=== PATIENT | female | born 1975 | race Caucasian/White ===

== ENCOUNTER → 2016-05-18 | Day surgery (SDC) | payer BC ==
[2016-05-18] VITALS (11 sets, daily range): BP systolic 114–125; BP diastolic 62–76; PULSE 73–99; TEMP 36.6–36.9; O2SAT 98–99; Ht 182.9 cm; Wt 110.0 kg
[~2016-05-18] VITALS: Ht 182.9 cm; Wt 110.0 kg
[~2016-05-18] MED LIST: ACETAMINOPHEN 500 MG TAB PO PRN; CETI10TA84 PO; CYAN100T PO; ERGO500037 PO; FAMO20TA11 PO; LORA-741 PO; SERT50TA PO; VERA1TAB PO
--- NOTE | 2016-05-18 09:41 | Discharge Instructions ---
Discharge Instructions Procedure Procedure Date: May 18, 2016. Reason for visit: Abn Mri, Headache, Left Arm ? W/Opening Pressure. Discharge Discharge Date: May 18, 2016. Discharge Diagnosis: Headache Instructions Activity Recommendations: 1 Day-May resume regular activity, 48 Hours of decreased exertion, 1 Day with no exercise/sex/sports, 1 Day with no driving/ machine use Return to School/Work: limitations (light activity x 48 hours) Recommended Home Diet: Resume Previous Diet Provider Instructions: Fluoroscopic guided lumbar puncture is performed at the L4-L5 interlaminar space. Approximately 10 cc of clear, colorless CSF was removed and sent for laboratory analysis. There were no immediate complications. Allergies Coded Allergies: No Known Allergies (Unverified , 05/18/16) Wen Jenkins Recommendations: Call your doctor if: * Temperature above 101 degrees * Pain not relieved by pain medicine ordered * There is increased drainage or redness from any incision * You have any unanswered questions or concerns. Your Doctors Instructions noted above were prepared by provider Vadim Capone. Patient Signature Section: Patient Instructions Signature Page Consuelo Ceballos Patient (or Guardian) Signature/Date: I have read and understand the instructions given to me by my caregivers. Caregiver/RN/Doctor Signature/Date: The above-named patient and/or guardian has received patient instructions on this date. + Original Patient Signature Page (only) stays with chart. Please make copy for patient.
--- NOTE | 2016-05-18 09:46 | DIAGNOSTIC IMAGING REPORT ---
FLUOROSCOPIC GUIDED LUMBAR PUNCTURE CLINICAL HISTORY: Headache. PROCEDURE: The risks, benefits, and alternatives to the procedure is discussed with the patient who voiced understanding. Written informed consent was obtained. The patient was placed prone on the fluoroscopy table. The lower back was prepped and draped in the usual sterile fashion. 1% lidocaine was used for local anesthesia. A 20-gauge spinal needle was inserted into the left L4-L5 interlaminar space, and approximately 10 cc of clear colorless cerebrospinal fluid was removed. The patient tolerated the procedure well. There were no immediate complications. The patient was then transported to the medical treatment unit for further observation. Fluoroscopy time: 0.2 minutes. Opening pressure: 16 cm of water. IMPRESSION: Fluoroscopic guided lumbar puncture with removal of approximately 10 cc of cerebrospinal fluid. There were no immediate complications. Electronically signed by: Vadim Capone M.D. 05/18/2016 9:44 AM Dictated Date/Time: 05/18/2016 9:42 AM
[2016-05-18 10:04] LABS: CSF APPEARANCE CLEAR; CSF COLOR COLORLESS; CSF XANTHOCHROMIC NO XANTHOCHROMIA
[2016-05-18 10:16] LABS: CSF TOTAL PROTEIN 31.8 mg/dl (15.0-45.0)
[2016-05-24 05:31] LABS: ALBUMIN 2.9 g/dL (3.7-5.1); IGG CSF 1.7 mg/dL (0.8-7.7); IGG SERUM 778 mg/dL (694-1618); LYME DNA PCR CSF OR SYNOVIAL Not detected (Not Detected); LYME DNA SOURCE CSF; LYME IGG CSF NO BANDS DETECTED; LYME IGM CSF NO BANDS DETECTED; MYELIN BASIC PROTEIN 663 <2.0 mcg/L (0.0-4.0)
== END | disposition home or self-care (01) ==
LOC: C.ACU 07:58
PROVIDERS: ATTEND Psychiatry & Neurology Neurology
DX: R51 Headache (principal)

== ENCOUNTER → 2016-06-13 | Outpatient (CLI) | payer BC ==
[~2016-06-13] MED LIST changes: -ACETAMINOPHEN 500 MG TAB PO PRN
--- NOTE | 2016-06-13 09:58 | EEG Procedure Note ---
EEG Procedure Note Date of Service Jun 13, 2016. Start / End Times Start Time: 8:29 AM End Time: 8:49 AM Referring Physician Rupali Guevara History This is a 40-year-old female with intermittent episodes of paresthesias. EEG for further evaluation of possible seizure etiology. Pertinent home medications include Depakote Home Medication List Scheduled Cetirizine (Zyrtec), 10 MG PO DAILY Cyanocobalamin (Vitamin B-12), 100 MCG PO DAILY Ergocalciferol (Vitamin D 58137 Unit), 1 CAP PO WK Famotidine (Pepcid), 20 MG PO BID Sertraline (Zoloft), 1 TAB PO DAILY Miscellaneous Medications Lorazepam (Ativan), 0.5 MG PO Verapamil (Calan), 90 MG PO Description This is a 21 electrode EEG with a single channel dedicated to limited EKG. The electrodes were placed in accordance with the International 10-20 system. At the start of the recording the patient was in an awake state. Background was well organized and composed of symmetric mixed alpha and beta frequencies. There was a symmetric well-formed moderate amplitude 9-10 Hz posterior dominant rhythm that was reactive to eye opening and closure. Hyperventilation with good effort produced no abnormalities. Intermittent photic stimulation at various frequencies produced no abnormalities. Resonance was indicated by loss of muscle artifact and slowing of background rhythm with vertex waves. There was no stage 2 sleep transients. Interpretation This is a normal awake and drowsy routine EEG. There was no electrographic seizures or epileptiform discharges. Clinical Correlation A normal EEG does not rule out epilepsy if there is a strong clinical suspicion.
== END | disposition home or self-care (01) ==
LOC: C.NEUR 08:05
PROVIDERS: ATTEND Psychiatry & Neurology Neurology
DX: R20.2 Paresthesia of skin (principal)

== ENCOUNTER → 2016-11-29 | Outpatient (CLI) | payer BC | END | disposition home or self-care (01) | LOC: C.PAPS 10:15 | PROVIDERS: ATTEND Physician Assistant | DX: Z01.419 Encounter for gynecological examination (general) (routine) without abnormal findings (principal) ==

== ENCOUNTER → 2017-03-12 | Outpatient (CLI) | payer BC ==
--- NOTE | 2017-03-13 13:45 | MAMMOGRAPHY REPORT ---
BILATERAL FIRST EVER DIGITAL SCREENING MAMMOGRAM TOMOSYNTHESIS WITH CAD: 03/12/2017 CLINICAL HISTORY: Routine screening. Baseline exam. TECHNIQUE: Breast tomosynthesis in addition to standard 2D mammography was performed. Current study was also evaluated with a Computer Aided Detection (CAD) system. COMPARISON: No prior exams were available for comparison. BREAST COMPOSITION: There are scattered areas of fibroglandular density in both breasts. FINDINGS: There are a few benign-appearing microcalcifications in the right breast. No suspicious m ass, architectural distortion or cluster of suspicious microcalcifications is seen. IMPRESSION: ACR BI-RADS CATEGORY 1: NEGATIVE There is no mammographic evidence of malignancy. A 1 year screening mammogram is recommended. The pa tient will receive written notification of the results. Approximately 10% of breast cancers are not detected with mammography. A negative mammographic report should not delay biopsy if a clinically suggestive mass is present. Annette Rosales M.D. ay/:03/12/2017 17:40:32 Utility Appraiser: Zeina ARRINGTON(Pia)(Maria L)(KELLY), [facility] letter sent: Normal 1/2 BI-RADS Code: ACR BI-RADS Category 1: Negative
== END | disposition home or self-care (01) ==
LOC: C.MAMM 12:48
PROVIDERS: ATTEND Physician Assistant
DX: Z12.31 Encounter for screening mammogram for malignant neoplasm of breast (principal)

== ENCOUNTER 2018-10-10 09:05 | Observation (INO) ==
--- NOTE | 2018-10-01 15:53 | PAT Medication Instructions ---
Medication Instructions Date of Service October 01, 2018 Home Medications aspirin [Aspir-81] 81 mg PO HS cholecalciferol (vitamin D3) [Vitamin D3] 10,000 unit PO HS famotidine-Ca carb-mag hydrox [Pepcid Complete] 1 tab PO HS sertraline 50 mg PO HS simvastatin 10 mg PO HS ASK your surgeon for instructions aspirin [Aspir-81] 81 mg PO HS Take evening before surgery cholecalciferol (vitamin D3) [Vitamin D3] 10,000 unit PO HS famotidine-Ca carb-mag hydrox [Pepcid Complete] 1 tab PO HS sertraline 50 mg PO HS simvastatin 10 mg PO HS *THEN NOTHING TO EAT OR DRINK AFTER MIDNIGHT* Other Notes If you have any questions please call us at [phone] or [phone] or [phone] or [phone]
--- NOTE | 2018-10-02 12:44 | Anesthesiology Consultation ---
Date of Service October 02, 2018 Assessment & Plan (1) Encounter for pre-operative examination: CHECK TEST AM DOS Chart Review Chart Review: Acceptable Risk for Surgery and Patient seen in Pre Admission Testing Teaching & Discussion Instructed NPO after midnight before surgery, except medications with 15 cc of water. Medication instructions provided according to the PAT guidelines. History Surgery Operation Date: 10/10/18 10:50 Proposed Procedures p Robotic Total Laparoscopic Hysterectomy - Girish Norris MD Height/Weight Height: 6 ft Weight: 116.3 kg Allergies Allergy/AdvReac Type Severity Reaction Status Date / Time No Known Allergies Allergy Verified 10/01/18 14:42 Medications Home Medications Medication Instructions Recorded Confirmed Last Taken aspirin [Aspir-81] 81 mg PO HS 10/01/18 10/01/18 Unknown cholecalciferol (vitamin D3) 10,000 unit PO HS 10/01/18 10/01/18 Unknown [Vitamin D3] famotidine-Ca carb-mag hydrox 1 tab PO HS 10/01/18 10/01/18 Unknown [Pepcid Complete] sertraline 50 mg PO HS 10/01/18 10/01/18 Unknown simvastatin 10 mg PO HS 10/01/18 10/01/18 Unknown Past Medical History Medical History Anxiety Dysfunctional uterine bleeding Hyperlipidemia Migraine Obesity Exercise / Class Metabolic Activity II 4-5 Yardwork/Stairs/Walk up hill Past Surgical History Surgical History History of bilateral tubal ligation Past Anesthesia History No Hx of Anesthesia Complications and No Family Hx of Anesthesia Complications (patient is adopted, parental hx unknown but daughter had no issues with GA) History of PONV No Hx of PONV and Hx of Motion Sickness Social History Smoking Status: Never smoker Do You Dip or Chew Tobacco: No Hx Alcohol Use: No Hx Substance Use: No substance use type: does not use Review of Systems Pt denies any recent chest pain, shortness of breath, palpitations, cough, fever or URI. Physical Exam Vital Signs BP: 130/78 P: 81bpm SPO2: 98% RA T: 98.8 F R: 14 ENMT Mouth: no dental restorations, no chipped teeth and no loose teeth Thyromental Distance: > or= 3.5 Finger Breadths (4) Mallampati Class: I Missing 3 lower L molars Neck normal visual inspection; neck extension not limited Respiratory normal respiratory effort Auscultation: lungs clear to auscultation bilaterally Cardiovascular Rate/Rhythm: regular rate and regular rhythm Heart Sounds: no murmur Extremities: no edema Testing Laboratory Results 10/02/18 12:20 Blood Type A Negative 10/02/18 12:20 Antibody Screen NEGATIVE 10/02/18 12:20 *Per record review, Hgb has been in the 9's since 08/2018; patient has had significant uterine bleeding.
[2018-10-02 12:49] LABS: Basophils # (auto) 0.02 K/uL (0-0.2); Basophils % (auto) 0.3 %; Eosinophils # (auto) 0.02 K/uL (0-0.5); Eosinophils % (auto) 0.3 %; Hematocrit (blood only) 31.7 % (37-47); Hemoglobin 9.8 g/dL (12.0-16.0); Immature Granulocytes # (auto) 0.01 K/uL (0.00-0.02); Immature Granulocytes % (auto) 0.1 %; Lymphocytes # (auto) 1.49 K/uL (1.2-3.4); Lymphocytes % (auto) 21.3 %; Mean Corpuscular Hgb Conc 30.9 g/dL (32-36); Mean Corpuscular Volume 69.8 fL (80-100); Mean Platelet Volume 9.5 fL (7.4-10.4); Monocytes % (auto) 5.7 %; Neutrophils # (auto) 5.05 K/uL (1.4-6.5); Neutrophils % (auto) 72.3 %; Platelet Count 341 K/uL (130-400); RDW Coefficient of Variation 16.1 % (11.5-14.5); RDW Standard Deviation 40.9 fL (36.4-46.3); Red Blood Count 4.54 M/uL (4.2-5.4); White Blood Count 6.99 K/uL (4.8-10.8)
[2018-10-02 13:22] LABS: Microcytosis Present
[~2018-10-10 09:05] MED LIST changes: +CEFAZOLIN 3000MG 65 ML IV SCH; -CETI10TA84 PO; -CYAN100T PO; -ERGO500037 PO; -FAMO20TA11 PO; +LIDOCAINE HCL 2% 2 ML VIAL/AMP(20MG/ML) INFIL ONE; -LORA-741 PO; +LR 15ML/HR IV SCH; +MIDAZOLAM HCL 1 MG/ML 2ML VIAL ONE; +ONDANSETRON INJ 2 MG/ML 2 ML VIAL ONE; +PHENAZOPYRIDINE HCL 100 MG TAB PO SCH; +PROPOFOL IV EMULSION 10 MG/ML 20 ML VIAL IV ONE; +ROCURONIUM BROMIDE 10 MG/ML 5 ML VIAL ONE; -SERT50TA PO; -VERA1TAB PO; +fentaNYL citrate 100 MCG/2 ML VIAL ONE
[2018-10-10] MEDS ORDERED: ATROPINE SULFATE 0.1 MG/ML 10ML SYR IV PRN (09:46)
[2018-10-10] MEDS ORDERED: ePHEDrine sulfate 50 MG/ML AMP IV PRN (09:46)
[2018-10-10] MEDS ORDERED: SCOPOLAMINE 1.5 MG TDSY TD ONE (09:47)
[2018-10-10] MEDS ORDERED: SCOPOLAMINE 1.5 MG TDSY ONE (09:50)
--- NOTE | 2018-10-10 09:53 | History & Physical Bridge Note ---
Date of Service October 10, 2018 History & Physical Bridge Note I have examined the patient, reviewed the History & Physical and in the interval since the performance of the History & Physical I have noted the following changes of clinical significance: no changes noted
[2018-10-10 09:55] LABS: Basophils # (auto) 0.02 K/uL (0-0.2); Basophils % (auto) 0.4 %; Eosinophils # (auto) 0.05 K/uL (0-0.5); Hematocrit (blood only) 29.5 % (37-47); Lymphocytes # (auto) 1.23 K/uL (1.2-3.4); Lymphocytes % (auto) 24.5 %; Mean Corpuscular Volume 70.1 fL (80-100); Mean Platelet Volume 8.9 fL (7.4-10.4); Neutrophils # (auto) 3.33 K/uL (1.4-6.5); Neutrophils % (auto) 66.1 %; Platelet Count 321 K/uL (130-400); RDW Coefficient of Variation 16.1 % (11.5-14.5); RDW Standard Deviation 41.1 fL (36.4-46.3); Red Blood Count 4.21 M/uL (4.2-5.4); White Blood Count 5.03 K/uL (4.8-10.8)
[2018-10-10 09:57] LABS: Mean Corpuscular Hgb Conc 30.5 g/dL (32-36)
[2018-10-10] MEDS ORDERED: BUPIVACAINE 0.5 % 5 MG/1 ML MPF 30ML VIAL ONE (10:08)
[2018-10-10 10:16] LABS: RBC Morphology Unremarkable
[2018-10-10] MEDS ORDERED: NEOSTIGMINE METHYLSULFATE 5 MG/5 ML SYR ONE (10:55)
[2018-10-10] MEDS ORDERED: ONDANSETRON INJ 2 MG/ML 2 ML VIAL ONE (10:55)
[2018-10-10] MEDS ORDERED: GLYCOPYRROLATE 0.2 MG/ML VIAL ONE (10:55)
[2018-10-10] MEDS ORDERED: DEXAMETHASONE SOD INJ 4 MG/ML VIAL ONE (10:55)
[2018-10-10] MEDS ORDERED: KETOROLAC 30 MG/ML VIAL ONE (10:55)
[2018-10-10] MEDS ORDERED: TISSEEL FIBRIN SEALANT 4ML TOP ONE (11:10)
[2018-10-10] MEDS ORDERED: PHENYLEPHRINE HCL 10 MG/ML VIAL ONE (11:38)
[2018-10-10] MEDS ORDERED: fentaNYL citrate 100 MCG/2 ML VIAL ONE (12:19)
[2018-10-10] MEDS ORDERED: ACETAMINOPHEN 325 MG TAB PO PRN (12:29)
[2018-10-10] MEDS ORDERED: OXYCODONE/ACETAMINOPHEN 5mg/325mg TAB PO PRN ×2 (12:29)
[2018-10-10] MEDS ORDERED: IBUPROFEN 600 MG TAB PO PRN (12:29)
[2018-10-10] MEDS ORDERED: SIMETHICONE 80 MG CHEW PO PRN (12:29)
[2018-10-10] MEDS ORDERED: ONDANSETRON INJ 2 MG/ML 2 ML VIAL IV PRN (12:29)
[2018-10-10] MEDS ORDERED: KETOROLAC 30 MG/ML VIAL IV PRN (12:29)
[2018-10-10] MEDS ORDERED: PROMETHAZINE HCL 12.5 MG in SODIUM CHLORIDE 0.9% 50 ML IV PRN (12:29)
--- NOTE | 2018-10-10 12:29 | Post Operative Brief Note ---
Immediate Post Op Note v1 Date of Surgery October 10, 2018 Pre & Post Diagnosis Operation Date: 10/10/18 10:20 Pre-Op Diagnosis: Dysfunctional Uterin Bleeding, Chronic Pelvic Pain Post-Op Diagnosis: Dysfunctional Uterin Bleeding, Chronic Pelvic Pain Procedure Operation Date: 10/10/18 10:20 Actual Procedures p Robotic Total Laparoscopic Hysterectomy, Bilateral Salpingectomy, Cystoscopy(Not Applicable) - Girish Norris MD EBL: 25 Complications: None' UOP: 200mL Surgeon Girish Norris MD Custom Miller NOne Estimated Blood Loss 25 Findings Consistent with Post-Op Diagnosis Drains Rodriguez Catheter (removed at end of procedure)
[2018-10-10] MEDS: HYDROmorphone INJ 1 MG/ML SYRINGE IV PRN ×4 (13:14→13:30)
--- NOTE | 2018-10-10 13:26 | Operative Report ---
DATE OF OPERATION: 10/10/2018 OPERATIVE PROCEDURE: Total laparoscopic hysterectomy, bilateral salpingectomy and cystoscopy. SURGEON: Girish Norris MD MANAGER INSIDE: None. PREOPERATIVE DIAGNOSES: 1. Dysfunctional uterine bleeding. 2. Chronic pelvic pain. POSTOPERATIVE DIAGNOSES: 1. Dysfunctional uterine bleeding. 2. Chronic pelvic pain. 3. Endometriosis: 4. Status post procedure. ESTIMATED BLOOD LOSS: 25 mL. DRAINS: Rodriguez. FLUIDS: Continuous lactated ringer. URINE OUTPUT: 200 mL via Rodriguez. COMPLICATIONS: None. FINDINGS: There was noted to be an 11-12 week size uterus, normal-appearing ovaries and fallopian tubes, showing a prior tubal ligation with Filshie clips. There was noted to be endometriosis throughout the pelvis including on the uterine fundus overlying the bladder peritoneum, posterior cul-de-sac, most notably on the uterosacral ligaments bilaterally and on the right and left lateral sidewalls. There was noted to be bilateral ureteral efflux and intact bladder on cystoscopy at the completion of the case. DESCRIPTION OF PROCEDURE: The patient was taken to the operating room after consents were ensured. Upon presentation, she was properly identified. General endotracheal anesthesia was obtained without difficulty. The patient was placed in dorsal lithotomy position and was prepped and draped in normal sterile fashion. A preprocedural timeout was performed. The [employer] uterine manipulator was then placed per automotive electrical fitter's specifications. The laparoscopic portion of the case was then initiated. A 12 mm incision was made at the superior aspect of the umbilicus. A Veress needle was inserted through the incision and the abdomen was insufflated to 15 mmHg. There was noted to be an opening pressure of approximately 4 mmHg, symmetric abdominal rise and tympany over the liver consistent with appropriate intra-abdominal insufflation. A 12 mm optically guided trocar was then inserted through the umbilical incision and inspection immediately following was noted for atraumatic entry. 8 mm ports were then placed in the right and left lower quadrants and then the left upper quadrant under direct visualization with atraumatic entry noted. The robot was then docked. The robotic portion of the case was initiated. There was noted to be some adhesions of the descending colon onto the left sidewall overlying the left ovary and IP ligament. These were gently dissected off of the lateral sidewall to expose the IP ligament and left ovary and fallopian tube. The left fallopian tube was then identified and serially cauterized and dissected off from the left ovary. The tube was then placed in the posterior cul-de-sac. The left round ligament was then identified, cauterized and serially dissected, opening at the retroperitoneal space. The left uteroovarian ligament was identified, serially cauterized, dissected and continued to the level of the opening at the round ligament. The anterior bladder flap was then created, continued from the left to the right side. The broad ligament was then dissected with monopolar scissors to the level of the left uterine vessels. Attention was then turned to the right aspect of the uterus. The right fallopian tube was identified and dissected off of the right ovary and placed in the posterior cul-de-sac. The round ligament on the right was then identified, cauterized and serially dissected and opening up the retroperitoneal space, the right uteroovarian ligament was then identified, serially cauterized, dissected and continued to the level of the round ligament. The anterior bladder flap was then continued on the right side connecting with the left. The bladder was then dissected off of the lower uterine segment, cervix to reveal the VCare uterine manipulator cup. The right broad ligament was then dissected down to the level of the right uterine vessels. The right uterine vessels were then serially cauterized. The attention was then turned to the left uterine vessels which were serially cauterized and dissected. The attention was then turned back to the right side and the uterine vessels were recauterized and dissected. The colpotomy was then started anteriorly and continued circumferentially around the cervix in a clockwise fashion to remove the cervix from the vagina. The uterus with proximal portions of the tubes were then delivered through the vaginal cuff. The fallopian tube remnants which were removed were then brought through the vaginal cuff and attention was sent to pathology. The cuff was then closed with V-lock suture in a continuous running stitch. There was noted to be an airtight seal at the completion of the closure. The robot was then undocked and a cystoscopy was performed. There was noted to be an intact bladder without disruption and bilateral ureteral efflux noted on cystoscopy. The straight stick laparoscopy was then performed to apply to seal to the raw pedicles and vaginal cuff. The abdomen was then desufflated. Trocars were removed. The fascia at the umbilical incision was debrided and reapproximated with 0 Vicryl in a single interrupted stitch. The skin at all ports were reapproximated with 4-0 Vicryl and with interrupted stitch. A 12 mL of lidocaine was then distributed throughout the 4 incisions. Dermabond was then placed over top of the incisions. Needle, sponge and instrument counts were correct at the completion of the case. The patient was awoken from anesthesia and taken to recovery room in excellent condition. I attest to the content of the Intraoperative Record and any orders documented therein. Any exceptions are noted below. KRISTAL
--- NOTE | 2018-10-10 13:46 | Anesthesiology Progress Note ---
Date of Service October 10, 2018 Anesthesia Post Procedure Vital Signs Vital Signs: Temp Pulse Pulse Resp BP Pulse Ox 10/10/18 13:25 37.3 C 75 18 118/59 L 100 10/10/18 13:15 37.3 C 72 19 116/64 100 10/10/18 13:05 37.3 C 81 15 124/63 100 10/10/18 12:55 37.3 C 71 12 116/67 100 10/10/18 12:45 37.3 C 70 12 121/66 100 10/10/18 12:38 37.3 C 69 18 118/66 100 10/10/18 09:33 37.5 C 104 H 18 136/91 98 Pain Intensity Abdomen: Pain Intensity: 4 Transfer of Care Handoff Completed per policy Notes Mental Status: alert / awake / arousable Patient Amnestic to Procedure: Yes Nausea / Vomiting: adequately controlled Pain: adequately controlled Airway Patency, RR, SpO2: stable & adequate BP & HR: stable & adequate Hydration State: stable & adequate Anesthetic Complications: no major complications apparent and Pt Satisfied with anesthetic care
[2018-10-10] MEDS ORDERED: CHECK SCOPOLAMINE PATCH PLACEMENT SCH (16:00)
--- NOTE | 2018-10-10 20:33 | Discharge Summary ---
PROCEDURES WHILE ADMITTED: Total laparoscopic hysterectomy, bilateral salpingectomy, and cystoscopy. SURGEON: Girish Norris MD ADMITTING ATTENDING: Girish Norris MD DISCHARGING ATTENDING: Girish Norris MD, HOSPITAL COURSE: The patient was admitted for the above-noted procedure. The procedure was without complication. Estimated blood loss for the procedure was approximately 25 mL. The patient remained in house for recovery period and was discharged home per her desire after all postoperative goals were met. The detailed postoperative instructions were provided to the patient in both verbal and written form. The patient is scheduled for followup in approximately 2 weeks' time and was encouraged to call with any concerns or issues. The patient was discharged home in stable condition.
[2018-10-10] MEDS ORDERED: DOCUSATE SODIUM 100 MG CAP PO SCH (21:00)
== END 2018-10-10 19:46 | disposition home or self-care (01) ==
LOC: 4N 09:05 → ASU 09:05